=== PATIENT | male | born 1965 | race Two or more races ===

== ENCOUNTER 2020-03-26 10:19 | Emergency (ER) | payer OTHER ==
[~2020-03-26] VITALS: Ht 177.8 cm; Wt 90.7 kg
[2020-03-26 10:25] VITALS: BP 148/84
--- NOTE | 2020-03-26 10:42 | NUR ---
SEEN AND EXAMINED BY .
--- NOTE | 2020-03-26 10:50 | NUR ---
EDGE SANDER AT BEDSIDE FOR XRAY.
--- NOTE | 2020-03-26 11:17 | NUR ---
Patient discharged to home in stable condition. Written and verbal after care instructions given. Patient verbalizes understanding of instruction.
== END 2020-03-26 11:18 | disposition home or self-care (01) ==
LOC: ER 10:26
DX: M54.6 Pain in thoracic spine (principal); R07.89 Other chest pain; V49.49XA Driver injured in collision with other motor vehicles in traffic accident, initial encounter; Y93.89 Activity, other specified; Y92.413 State road as the place of occurrence of the external cause; Y99.8 Other external cause status
CPT/HCPCS: 71045-TC

== ENCOUNTER 2020-09-29 23:25 | Emergency (ER) | payer OTHER ==
[~2020-09-29] VITALS: Ht 180.3 cm; Wt 93.0 kg
[2020-09-29 23:29] VITALS: BP 167/96
[2020-09-29] MEDS ORDERED: IPRATROPIUM NEB FS 0.5 MG/2.5 ML AMPUL.NEB ONE (23:41)
[2020-09-29] MEDS ORDERED: ALBUTEROL FS 2.5 MG/3 ML VIAL.NEB ONE (23:41)
[2020-09-29] MEDS ORDERED: DEXAMETHASONE SOD PHOSPHATE 10 MG/ML VIAL ONE (23:43)
[2020-09-30] MEDS ORDERED: IPRATROPIUM NEB FS 0.5 MG/2.5 ML AMPUL.NEB NEB ONE
[2020-09-30] MEDS ORDERED: ALBUTEROL FS 2.5 MG/3 ML VIAL.NEB NEB ONE
[2020-09-30] MEDS ORDERED: DEXAMETHASONE SOD PHOSPHATE 10 MG/ML VIAL IM ONE
--- NOTE | 2020-09-30 00:39 | NUR ---
Patient discharged to home in stable condition. Written and verbal after care instructions given. Patient verbalizes understanding of instruction.
== END 2020-09-30 00:39 | disposition home or self-care (01) ==
LOC: ER 23:27
DX: J45.909 Unspecified asthma, uncomplicated (principal)
CPT/HCPCS: 71045; 94640; 96372; 99283; J1100

== ENCOUNTER 2022-08-08 21:49 | Emergency (ER) | payer OTHER ==
[~2022-08-08] VITALS: Ht 177.8 cm; Wt 93.0 kg
[2022-08-08] MEDS ORDERED: ALBUTEROL FS 2.5 MG/3 ML VIAL.NEB NEB ONE (22:00)
[2022-08-08] MEDS ORDERED: predniSONE 20 MG TABLET PO ONE (22:00)
[2022-08-08] MEDS ORDERED: IPRATROPIUM NEB FS 0.5 MG/2.5 ML AMPUL.NEB NEB ONE (22:00)
--- NOTE | 2022-08-08 22:00 | NUR ---
BIBS C/O HAVING AN ASTHMA ATTACK X FEW DAYS UNRELIEVED BY INHALER. AMBULATORY, PLACED BED, BREATHING EVEN AND UNLABORED SATURATING AT 97%RA
[2022-08-08] MEDS ORDERED: predniSONE 20 MG TABLET ONE (22:12)
[2022-08-08] MEDS ORDERED: IPRATROPIUM NEB FS 0.5 MG/2.5 ML AMPUL.NEB ONE (22:16)
[2022-08-08] MEDS ORDERED: ALBUTEROL FS 2.5 MG/3 ML VIAL.NEB ONE (22:16)
--- NOTE | 2022-08-08 22:16 | NUR ---
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
[2022-08-08] MEDS ORDERED: PRED20TA PO (22:57)
--- NOTE | 2022-08-08 23:48 | NUR ---
PT NOW TOLERATING R/A WELL WITH NO RESP DISTRESS OR SOB
--- NOTE | 2022-08-08 23:55 | NUR ---
Patient discharged to home in stable condition. Written and verbal after care instructions given. Patient verbalizes understanding of instruction. pt ambulatory with a steady gait
[2022-08-08 23:56] VITALS: BP 114/87
== END 2022-08-08 23:56 | disposition home or self-care (01) ==
LOC: ER 21:52
DX: J45.909 Unspecified asthma, uncomplicated (principal); Z79.52 Long term (current) use of systemic steroids
CPT/HCPCS: 99285; 94644; J7512